=== PATIENT | male | born 1960 | race Caucasian/White ===

== ENCOUNTER 2016-04-03 09:43 | Emergency (ER) | payer SELFPAY ==
[2016-04-03 10:16] VITALS: TEMP 99; BMI 23.6
[2016-04-03 10:41] LABS: AUTOMATED BASOPHIL 1.1 % (0-2); AUTOMATED EOSINOPHIL 2.8 % (0-5); AUTOMATED LYMPH 33.9 % (17-44); AUTOMATED MONOCYTE 12.9 % (3-10); AUTOMATED NEUTROPHIL 49.3 % (45-76); MPV 7.8 fL (7.4-10.4)
[2016-04-03 10:57] LABS: BLOOD UREA NITROGEN 9 MG/DL (9-20); CALCIUM 9.1 MG/DL (8.4-10.2); CALCULATED OSMOLALITY 267 MOs/Kg (270-290); CHLORIDE 101 mEq/L (98-107); GLUCOSE 129 MG/DL (70-99); SODIUM LEVEL 138 mEq/L (137-146); TOTAL PROTEIN 7.2 G/DL (6.3-8.2)
[2016-04-03 11:02] LABS: RBC/URINE 0-2 (0-2); WBC/URINE 0-2 (0-2)
[2016-04-03 11:06] LABS: LEUKOCYTES/URINE NEG (NEGATIVE); NITRITE/URINE NEG (NEGATIVE); URINE OCCULT BLOOD NEG (NEG/TRACE)
[2016-04-03 12:01] VITALS: PULSE 76
--- NOTE | 2016-04-03 12:27 | EDPRACDOC ---
- General Information Chief Complaint: Back Pain Stated Complaint: RT SIDE PAIN Time Seen by Provider: 04/03/16 12:19 Information Source: Patient Mode Of Arrival: Car Home Medications: Home Medications Atenolol [Tenormin] 50 mg PO DAILY(DRAGAN) 10/14/15 Alprazolam [Xanax] 1 mg PO TID 12/15/15 Aspirin (OrangeEnteric Coated) [Ecotrin] 325 mg PO DAILYWM #100 tablet 12/15/15 Oxycodone HCl/Acetaminophen [Percocet 10-325 mg Tablet] 1 tab PO TID 12/15/15 Oxymorphone HCl [Opana] 15 mg PO TID 12/15/15 Diazepam [Valium] 5 mg PO TID PRN #10 tablet 03/05/16 Oxycodone HCl [Roxicodone] 5 mg PO Q4 PRN #10 tablet 03/05/16 Cyclobenzaprine HCl [Flexeril] 10 mg PO TID PRN #15 tablet 04/03/16 Oxycodone Immediate Release [Oxycodone Immediate Release (OxyIR)] 5 mg PO Q6H PRN #10 tab 04/03/16 Prednisone [Deltasone, Orasone] 20 mg PO DAILY #20 tab 04/03/16 Allergies/Adverse Reactions: Allergies Allergy/AdvReac Type Severity Reaction Status Date / Time codeine Allergy Rash-Genera Verified 03/05/16 15:21 lized hydrocodone Allergy Nausea/Vomi Verified 03/05/16 15:21 ting morphine Allergy Nausea/Vomi Verified 03/05/16 15:21 ting Penicillins Allergy rash Verified 03/05/16 15:21 tramadol Allergy Rash-Genera Verified 03/05/16 15:21 lized - History of Present Illness Onset: YESTERDAY HPI: PT c/o R lower back pain radiating to R thigh x 2 days. Denies abd pain, n/v, loss of control bowel or bladder, leg weakness or numbness, rash. Pt states he has not followed up with liver specialist yet. Pain Location: Reports: Right, Lumbar Pain Radiates To: Reports: Thigh, Buttock Pain Caused By: Reports: Spontaneous Circumstances: Reports: Unknown Relevant History: Reports: Chronic back pain Pain Severity: Reports: Moderate Pain Quality: Reports: Aching, Sharp, Stabbing Worsened By: Reports: Movement Associated Signs and Symptoms: Reports: None ED Past Medical History - History Reviewed Yes Nurses notes reviewed and agree except as marked - Patient Medical History Neurological History: Reports: Cerebrovascular Accident (AGE 29-), Seizures Cardiac History: Reports: Hypertension Musculoskeletal History: Reports: Arthritis Psychological History: Reports: Anxiety. Denies: Depression, Substance Use Disorder Surgical History: Reports: Other (Right forearm after trauma.) - Family Medical History Reports: Hypertension (mother, father, brothers, sisters), Diabetes (mother), Cancer (brother-lung CA, sister-unsure), Stroke (Both parents), Cardiac Disorders (mother) - Social Medical History Smoking Status: Heavy tobacco smoker (5 or more cigarettes/day or daily pipe/ cigar) Social History: Denies: Substance Use Disorder ETOH: None Substance Abuse: None EDM Review of Systems - Review of Systems Constitutional: No Symptoms Reported. negative: Fever, Chills, Weakness, Fatigue, Loss of Appetite Respiratory: No Symptoms Reported. negative: Cough, Brassy Cough, Barky Cough, Shortness of Breath, Wheezing, Hemoptysis Cardiovascular: No Symptoms Reported. negative: Chest Pain, Palpitations, Syncope, Edema, Orthopnea, PND, Skin Mottling, Cyanosis Gastrointestinal: No Symptoms Reported. negative: Pain, Constipation, Nausea, Vomiting, Diarrhea, Melena, Formula Intolerance Genitourinary: No Symptoms Reported. negative: Dysuria, Hematuria, Frequency, Discharge, Bleeding, Testicular Pain, Neurological: No Symptoms Reported. negative: Headache, Dizziness, Seizure, Numbness, Weakness, Speech Difficulty, Gait Difficulty Musculoskeletal: Back, Femur, Hip Integumentary: No Symptoms Reported. negative: Itching, Rash, Bruising, Wound Allergic/Immunologic: No Symptoms Reported. negative: Hives, Itching Hematologic: No Symptoms Reported. negative: Lymphadenopathy, Easy Bruising, Easy Bleeding Psychiatric: No Symptoms Reported. negative: Anxiety, Depression, Hallucinations, Insomnia, Suicidal - Physical Exam Constitutional: Alert Oriented to: Time, Person, Place Last recorded Vital Signs: Last Vital Signs Temp 99.0 F 04/03/16 10:09 Pulse 76 04/03/16 12:00 Resp 20 04/03/16 12:00 BP 205/99 H 04/03/16 12:00 Pulse Ox 97 04/03/16 12:00 Oxygen Pulse Oxygen Saturation 97 O2 Device Room Air Oxygen Flow Rate Fraction of Inspired Oxygen ( FIO2) - HEENT Head: Normal ( normocephalic) - Respiratory/Cardiovascular Respiratory: Normal - CTA (BBS clear to auscultation without adventitious sounds ) Cardiovascular: Normal (RRR without murmur, gallop or rub) - GI Auscultation: Normal (NABS) Palpation: Normal (Soft,No rebound or guarding, non distended) Tenderness: Non tender Chavez's Sign: Negative - Musculoskeletal Back: Normal (Non-Tender) Extremities: Normal (Normal tone, Pulses 2+ No cyanosis or edema, FROM) - Integumentary Skin: Normal, Warm, Dry Lymphatics: Normal (no adenopathy) - Neurologic Memory Impaired: Normal Motor Function: Normal (Normal tone, Pulses 2+ No cyanosis or edema, FROM) Mood Description: Normal Perception: Normal ED Back Exam - Neurologic Motor Deficit: None (strength 5/5, sensation nl) Reflexes: Normal (CN II-X11 intact) - Musculoskeletal Cervical: Normal Thoracic: Normal Lumbar: Normal Midline: Normal Paraspinous: Normal Straight Leg Raise: Positive (R) Pelvis: Normal - Differential Diagnosis DJD, Musculoskeletal pain, Strain, Urinary tract infection - Results 04/03/16 10:20 04/03/16 10:20 WBC 5.3 xk/uL (3.8-10.8) 04/03/16 10:20 RBC 4.78 xM/uL (4.70-6.10) 04/03/16 10:20 Hgb 16.0 g/dL (14.0-18.0) 04/03/16 10:20 Hct 45.3 % (42-52) 04/03/16 10:20 MCV 95 fL (80-94) H 04/03/16 10:20 MCH 33.5 pg (27-32) H 04/03/16 10:20 MCHC 35.4 g/dl (33-36) 04/03/16 10:20 RDW 14.2 % (11.5-14.5) 04/03/16 10:20 Plt Count 167 xk/uL (130-400) 04/03/16 10:20 MPV 7.8 fL (7.4-10.4) 04/03/16 10:20 Neut % (Auto) 49.3 % (45-76) 04/03/16 10:20 Lymph % (Auto) 33.9 % (17-44) 04/03/16 10:20 [place] % (Auto) 12.9 % (3-10) H 04/03/16 10:20 Eos % (Auto) 2.8 % (0-5) 04/03/16 10:20 Baso % (Auto) 1.1 % (0-2) 04/03/16 10:20 Absolute Neuts (auto) 2.60 xk/uL (1.7-8.2) 04/03/16 10:20 Absolute Lymphs (auto) 1.75 xk/uL (0.65-4.75) 04/03/16 10:20 Sodium 138 mEq/L (137-146) 04/03/16 10:20 Potassium 4.1 mEq/L (3.5-5.1) 04/03/16 10:20 Chloride 101 mEq/L (98-107) 04/03/16 10:20 Carbon Dioxide 30 mMOL/L (22-33) 04/03/16 10:20 Anion Gap 11 mEq/L (8-16) 04/03/16 10:20 BUN 9 MG/DL (9-20) 04/03/16 10:20 Creatinine 0.80 MG/DL (0.66-1.25) 04/03/16 10:20 Estimated GFR (MDRD) > 60 mL/min (>=60) 04/03/16 10:20 Glucose 129 MG/DL (70-99) H 04/03/16 10:20 Calculated Osmolality 267 MOs/Kg (270-290) L 04/03/16 10:20 Calcium 9.1 MG/DL (8.4-10.2) 04/03/16 10:20 Total Bilirubin 0.9 MG/DL (0.2-1.3) 04/03/16 10:20 AST 456 IU/L (17-59) H 04/03/16 10:20 ALT 481 IU/L (21-72) H 04/03/16 10:20 Alkaline Phosphatase 104 IU/L (38-126) 04/03/16 10:20 Total Protein 7.2 G/DL (6.3-8.2) 04/03/16 10:20 Albumin 4.1 G/DL (3.5-5.0) 04/03/16 10:20 Urine Color Yellow 04/03/16 10:24 Urine Clarity Clear 04/03/16 10:24 Urine pH 6.0 (5.0-8.0) 04/03/16 10:24 Ur Specific [place] 1.005 (1.003-1.035) 04/03/16 10:24 Urine Protein Neg (NEG/TRACE) 04/03/16 10:24 Urine Glucose (UA) Neg (NEGATIVE) 04/03/16 10:24 Urine Ketones Neg (NEGATIVE) 04/03/16 10:24 Urine Occult Blood Neg (NEG/TRACE) 04/03/16 10:24 Urine Nitrite Neg (NEGATIVE) 04/03/16 10:24 Urine Bilirubin Neg (NEGATIVE) 04/03/16 10:24 Urine Urobilinogen 0.2 MG/DL (0-1) 04/03/16 10:24 Ur Leukocyte Esterase Neg (NEGATIVE) 04/03/16 10:24 Urine RBC 0-2 (0-2) 04/03/16 10:24 Urine WBC 0-2 (0-2) 04/03/16 10:24 Urine Bacteria Few (NEG/FEW) 04/03/16 10:24 Lab Results 04/03/16 04/03/16 04/03/16 10:24 10:20 10:20 WBC 5.3 RBC 4.78 Hgb 16.0 Hct 45.3 MCV 95 H MCH 33.5 H MCHC 35.4 RDW 14.2 Plt Count 167 MPV 7.8 Neut % (Auto) 49.3 Lymph % (Auto) 33.9 [place] % (Auto) 12.9 H Eos % (Auto) 2.8 Baso % (Auto) 1.1 Absolute Neuts (auto) 2.60 Absolute Lymphs (auto) 1.75 Sodium 138 Potassium 4.1 Chloride 101 Carbon Dioxide 30 Anion Gap 11 BUN 9 Creatinine 0.80 Estimated GFR (MDRD) > 60 Glucose 129 H Calculated Osmolality 267 L Calcium 9.1 Total Bilirubin 0.9 AST 456 H ALT 481 H Alkaline Phosphatase 104 Total Protein 7.2 Albumin 4.1 Urine Color Yellow Urine Clarity Clear Urine pH 6.0 Ur Specific [place] 1.005 Urine Protein Neg Urine Glucose (UA) Neg Urine Ketones Neg Urine Occult Blood Neg Urine Nitrite Neg Urine Bilirubin Neg Urine Urobilinogen 0.2 Ur Leukocyte Esterase Neg Urine RBC 0-2 Urine WBC 0-2 Urine Bacteria Few - Additional Information Informed pt he must f/u with liver specialist to r/o cancer Decision Time to Discharge: 12:27 - Departure Disposition: Home Condition: Good Final Diagnosis: Lumbar radiculopathy, Sciatica of right side, Elevated liver enzymes Instructions: Sciatica (ED), Lumbar Radiculopathy (ED) Education/Counseling Given To: Patient Education/Counseling Given Regarding: Diagnosis, Treatment, Follow Up Referrals: None,No Provider [Primary Care Provider] - One Week Justin Osborn MD [Staff Physician] - One Week Tariq Patton MD [Staff Physician] - One Week Prescriptions: Cyclobenzaprine HCl [Flexeril] 10 mg PO TID PRN #15 tablet PRN Reason: Pain Oxycodone Immediate Release [Oxycodone Immediate Release (OxyIR)] 5 mg PO Q6H PRN #10 tab PRN Reason: Pain Prednisone [Deltasone, Orasone] 20 mg PO DAILY #20 tab Additional Instructions: Follow up with Personal MD for further evaluation of liver to rule out cancer.
[2016-04-03 12:41] VITALS: BP 212/92
== END 2016-04-03 12:34 | disposition home or self-care (01) ==
LOC: ED 09:43 → EDMC 12:34
DX: M54.16 Radiculopathy, lumbar region (principal); M54.41 Lumbago with sciatica, right side; R74.8 Abnormal levels of other serum enzymes
CPT/HCPCS: 36415; 80053; 81001; 85025; 99282

== ENCOUNTER 2016-04-22 16:07 | Emergency (ER) | payer SELFPAY ==
[2016-04-22 16:18] VITALS: BMI 23.3
[2016-04-22 16:37] LABS: AUTOMATED BASOPHIL 1.2 % (0-2); AUTOMATED EOSINOPHIL 0.6 % (0-5); AUTOMATED LYMPH 24.7 % (17-44); AUTOMATED MONOCYTE 7.6 % (3-10); AUTOMATED NEUTROPHIL 65.9 % (45-76); MPV 7.5 fL (7.4-10.4)
[2016-04-22 16:46] LABS: LEUKOCYTES/URINE NEG (NEGATIVE); NITRITE/URINE NEG (NEGATIVE); RBC/URINE 0-2 (0-2); URINE OCCULT BLOOD NEG (NEG/TRACE); WBC/URINE 0-2 (0-2)
[2016-04-22 16:49] LABS: BLOOD UREA NITROGEN 15 MG/DL (9-20); CALCIUM 8.9 MG/DL (8.4-10.2); CALCULATED OSMOLALITY 265 MOs/Kg (270-290); CHLORIDE 103 mEq/L (98-107); GLUCOSE 91 mg/dL (70-99); SODIUM LEVEL 137 mEq/L (137-146); TOTAL PROTEIN 7.4 G/DL (6.3-8.2)
--- NOTE | 2016-04-22 17:48 | EDPRACDOC ---
- General Information Chief Complaint: Abdominal Pain Stated Complaint: RT UPPER ABD PAIN WITH RT SIDED BACK PAIN Time Seen by Provider: 04/22/16 17:38 Information Source: Patient Mode Of Arrival: Car Home Medications: Home Medications Dicyclomine HCl [Bentyl] 20 mg PO Q6H PRN #30 tab 04/22/16 Allergies/Adverse Reactions: Allergies Allergy/AdvReac Type Severity Reaction Status Date / Time codeine Allergy Rash-Genera Verified 04/22/16 16:18 lized hydrocodone Allergy Nausea/Vomi Verified 04/22/16 16:18 ting morphine Allergy Nausea/Vomi Verified 04/22/16 16:18 ting Penicillins Allergy rash Verified 04/22/16 16:18 tramadol Allergy Rash-Genera Verified 04/22/16 16:18 lized - History of Present Illness Onset: 1 WEEK AGO HPI: PT COMPLAINS OF RUQ PAIN RADIATING TO RIGHT FLANK FOR SEVERAL MONTHS, WORSE OVER THE LAST WEEK, STATES HAD FEVER TO 101 LAST WEEK. NO N/V/D, NO URINARY SYMPTOMS, NO CP OR SOBR, PT STATES HE WAS TOLD IN THE PAST THAT HE HAD "SWOLLEN LYMPH NODES" AROUND HIS LIVER, HAS NEVER FOLLOWED UP. Pain Location: Reports: RUQ, Flank Pain Context: Reports: Spontaneous Pain Severity: Severe Pain Quality: Reports: Sharp, Stabbing Pain Radiation: Reports: Flank Adult Abdominal History: Reports: Similar Pain (dx) Modifying Factors: improves with: Food, Position, Movement Associated Signs & Symptoms: Reports: Nausea. Denies: Frequency, Hematuria, Vomiting, Hematemesis, Anorexia, Diarrhea, Melena, Dysuria, Fever, Urgency, Chills Oral Intake: Normal Urinary Output: Normal ED Past Medical History - History Reviewed Yes Nurses notes reviewed and agree except as marked - Patient Medical History Neurological History: Reports: Cerebrovascular Accident (AGE 29-), Seizures Cardiac History: Reports: Hypertension Musculoskeletal History: Reports: Arthritis Psychological History: Reports: Anxiety. Denies: Depression, Substance Use Disorder Surgical History: Reports: Other (Right forearm after trauma.) - Family Medical History Reports: Hypertension (mother, father, brothers, sisters), Diabetes (mother), Cancer (brother-lung [place], sister-unsure), Stroke (Both parents), Cardiac Disorders (mother) - Social Medical History Smoking Status: Heavy tobacco smoker (5 or more cigarettes/day or daily pipe/ cigar) Social History: Denies: Substance Use Disorder ETOH: None Substance Abuse: None EDM Review of Systems - Review of Systems Constitutional: negative: Chills, Fever Eyes: negative: Blurred Vision, Double Vision Ears: negative: Drainage Throat: negative: Pain Nose: negative: Congestion, Discharge Respiratory: negative: Cough, Shortness of Breath, Wheezing Cardiovascular: negative: Chest Pain, Palpitations Gastrointestinal: Nausea, Pain. negative: Diarrhea, Vomiting Genitourinary: negative: Dysuria, Frequency Neurological: negative: Dizziness, Headache, Numbness, Weakness Musculoskeletal: No Symptoms Reported Integumentary: No Symptoms Reported - Physical Exam Constitutional: Alert (Awake), No apparent distress Oriented to: Time, Person, Place Last recorded Vital Signs: Last Vital Signs Temp 98.5 F 04/22/16 16:07 Pulse 84 04/22/16 17:52 Resp 20 04/22/16 17:52 BP 179/94 04/22/16 17:52 Pulse Ox 96 04/22/16 17:52 Oxygen Pulse Oxygen Saturation 96 O2 Device Room Air Oxygen Flow Rate Fraction of Inspired Oxygen ( FIO2) - HEENT Head: Normal ( normocephalic) Eye Exam: Normal (PERRL, EOMI, Sclera white) Oropharynx: Normal (Pharynx:Moist without exudate,Gums-no swelling) Tympanic Membrane: Normal ENT EAC: Normal TMJ: Normal Nose: No Symptoms Reported (septum midline) Neck: Normal (FROM, trachea at midline) - Respiratory/Cardiovascular Respiratory: Normal - CTA (BBS clear to auscultation without adventitious sounds ) Cardiovascular: Normal (RRR without murmur, gallop or rub) - GI Auscultation: Normal (NABS) Palpation: Normal (Soft,No rebound or guarding, non distended) Tenderness: Diffuse (WORSE RUQ), Mild. negative: Guarding, Rebound, Rigidity Chavez's Sign: Negative - Musculoskeletal Back: Normal (Non-Tender) Extremities: Normal (Normal tone, Pulses 2+ No cyanosis or edema, FROM) - Integumentary Skin: Normal, Warm, Dry Lymphatics: Normal (no adenopathy) - Neurologic Memory Impaired: Normal Motor Function: Normal (Normal tone, Pulses 2+ No cyanosis or edema, FROM) Cranial Nerve: Normal (CN II-X11 intact sensation, strength 5/5) Cerebellar: Normal Mood Description: Normal Perception: Normal - Differential Diagnosis Bowel Obstruction, Cholelithiasis, Constipation, Diverticulitis, IBS, Pancreatitis, UTI, Ureterolithiasis - Results 04/22/16 16:24 04/22/16 16:24 WBC 8.7 xk/uL (3.8-10.8) 04/22/16 16:24 RBC 4.55 xM/uL (4.70-6.10) L 04/22/16 16:24 Hgb 15.1 g/dL (14.0-18.0) 04/22/16 16:24 Hct 42.8 % (42-52) 04/22/16 16:24 MCV 94 fL (80-94) 04/22/16 16:24 MCH 33.2 pg (27-32) H 04/22/16 16:24 MCHC 35.3 g/dl (33-36) 04/22/16 16:24 RDW 13.4 % (11.5-14.5) 04/22/16 16:24 Plt Count 244 xk/uL (130-400) 04/22/16 16:24 MPV 7.5 fL (7.4-10.4) 04/22/16 16:24 Neut % (Auto) 65.9 % (45-76) 04/22/16 16:24 Lymph % (Auto) 24.7 % (17-44) 04/22/16 16:24 [place] % (Auto) 7.6 % (3-10) 04/22/16 16:24 Eos % (Auto) 0.6 % (0-5) 04/22/16 16:24 Baso % (Auto) 1.2 % (0-2) 04/22/16 16:24 Absolute Neuts (auto) 5.66 xk/uL (1.7-8.2) 04/22/16 16:24 Absolute Lymphs (auto) 2.09 xk/uL (0.65-4.75) 04/22/16 16:24 Sodium 137 mEq/L (137-146) 04/22/16 16:24 Potassium 3.8 mEq/L (3.5-5.1) 04/22/16 16:24 Chloride 103 mEq/L (98-107) 04/22/16 16:24 Carbon Dioxide 26 mMOL/L (22-33) 04/22/16 16:24 Anion Gap 12 mEq/L (8-16) 04/22/16 16:24 BUN 15 MG/DL (9-20) 04/22/16 16:24 Creatinine 0.80 MG/DL (0.66-1.25) 04/22/16 16:24 Estimated GFR (MDRD) > 60 mL/min (>=60) 04/22/16 16:24 Glucose 91 mg/dL (70-99) 04/22/16 16:24 Calculated Osmolality 265 MOs/Kg (270-290) L 04/22/16 16:24 Calcium 8.9 MG/DL (8.4-10.2) 04/22/16 16:24 Total Bilirubin 0.9 MG/DL (0.2-1.3) 04/22/16 16:24 AST 47 IU/L (17-59) 04/22/16 16:24 ALT 109 IU/L (21-72) H 04/22/16 16:24 Alkaline Phosphatase 108 IU/L (38-126) 04/22/16 16:24 Ammonia < 9.0 umol/L (9.0-30.0) L 04/22/16 16:24 Total Protein 7.4 G/DL (6.3-8.2) 04/22/16 16:24 Albumin 4.1 G/DL (3.5-5.0) 04/22/16 16:24 Lipase 52 U/L (23-300) 04/22/16 16:24 Urine Color Yellow 04/22/16 16:20 Urine Clarity Clear 04/22/16 16:20 Urine pH 5.0 (5.0-8.0) 04/22/16 16:20 Ur Specific [place] 1.005 (1.003-1.035) 04/22/16 16:20 Urine Protein Neg (NEG/TRACE) 04/22/16 16:20 Urine Glucose (UA) Neg (NEGATIVE) 04/22/16 16:20 Urine Ketones Neg (NEGATIVE) 04/22/16 16:20 Urine Occult Blood Neg (NEG/TRACE) 04/22/16 16:20 Urine Nitrite Neg (NEGATIVE) 04/22/16 16:20 Urine Bilirubin Neg (NEGATIVE) 04/22/16 16:20 Urine Urobilinogen <2.0 MG/DL (0-1) 04/22/16 16:20 Ur Leukocyte Esterase Neg (NEGATIVE) 04/22/16 16:20 Urine RBC 0-2 (0-2) 04/22/16 16:20 Urine WBC 0-2 (0-2) 04/22/16 16:20 Ur Epithelial Cells Occ 04/22/16 16:20 Urine Bacteria Few (NEG/FEW) 04/22/16 16:20 Lab Results 04/22/16 04/22/16 04/22/16 16:24 16:24 16:24 WBC 8.7 RBC 4.55 L Hgb 15.1 Hct 42.8 MCV 94 MCH 33.2 H MCHC 35.3 RDW 13.4 Plt Count 244 MPV 7.5 Neut % (Auto) 65.9 Lymph % (Auto) 24.7 [place] % (Auto) 7.6 Eos % (Auto) 0.6 Baso % (Auto) 1.2 Absolute Neuts (auto) 5.66 Absolute Lymphs (auto) 2.09 Sodium 137 Potassium 3.8 Chloride 103 Carbon Dioxide 26 Anion Gap 12 BUN 15 Creatinine 0.80 Estimated GFR (MDRD) > 60 Glucose 91 Calculated Osmolality 265 L Calcium 8.9 Total Bilirubin 0.9 AST 47 ALT 109 H Alkaline Phosphatase 108 Ammonia < 9.0 L Total Protein 7.4 Albumin 4.1 Lipase 52 Urine Color Urine Clarity Urine pH Ur Specific [place] Urine Protein Urine Glucose (UA) Urine Ketones Urine Occult Blood Urine Nitrite Urine Bilirubin Urine Urobilinogen Ur Leukocyte Esterase Urine RBC Urine WBC Ur Epithelial Cells Urine Bacteria 04/22/16 16:20 WBC RBC Hgb Hct MCV MCH MCHC RDW Plt Count MPV Neut % (Auto) Lymph % (Auto) [place] % (Auto) Eos % (Auto) Baso % (Auto) Absolute Neuts (auto) Absolute Lymphs (auto) Sodium Potassium Chloride Carbon Dioxide Anion Gap BUN Creatinine Estimated GFR (MDRD) Glucose Calculated Osmolality Calcium Total Bilirubin AST ALT Alkaline Phosphatase Ammonia Total Protein Albumin Lipase Urine Color Yellow Urine Clarity Clear Urine pH 5.0 Ur Specific [place] 1.005 Urine Protein Neg Urine Glucose (UA) Neg Urine Ketones Neg Urine Occult Blood Neg Urine Nitrite Neg Urine Bilirubin Neg Urine Urobilinogen <2.0 Ur Leukocyte Esterase Neg Urine RBC 0-2 Urine WBC 0-2 Ur Epithelial Cells Occ Urine Bacteria Few - Diagnostic Imaging CT ABD/PELVIS Image interpreted by: Radiologist 04/22/16 19:18 CT ABDOMEN AND PELVIS WITH CONTRAST TECHNIQUE: Multidetector CT imaging of the abdomen and pelvis was performed using the standard protocol following bolus administration of intravenous contrast. CONTRAST: 100 cc Isovue 370 IV COMPARISON: CTA 03/05/2016 FINDINGS: Small nodule in the anterior right middle lobe measures 3-4 mm, stable. Lung bases otherwise clear. Heart is normal size. No effusions. Liver, gallbladder, spleen, pancreas, adrenals and kidneys are normal. No renal or ureteral stones. No hydronephrosis. Appendix is visualized and is normal. Urinary bladder wall appears mildly thickened. This is stable when compared to prior study and likely reflects some degree of bladder outlet obstruction. Central prostate calcifications present. Stomach, large and small bowel are unremarkable. No free fluid, free air or adenopathy. Aorta is normal caliber. No acute bony abnormality or focal bone lesion. IMPRESSION: No acute findings in the abdomen or pelvis. Decision Time to Discharge: 19:18 - Departure Disposition: Home Condition: Stable Final Diagnosis: Abdominal pain Instructions: Acute Abdominal Pain (ED) Education/Counseling Given To: Patient Education/Counseling Given Regarding: Diagnosis, Treatment, Prognosis, Follow Up Referrals: Norman Capps MD [Staff Physician] - One Week Prescriptions: New Dicyclomine HCl [Bentyl] 20 mg PO Q6H PRN #30 tab PRN Reason: Abdominal Pain Additional Instructions: RETURN TO THE ED FOR ANY WORSENING SYMPTOMS OR CONCERNS.
[2016-04-22] MEDS ORDERED: FENTANYL 100 MCG/2 ML VIAL IV ONE (17:51)
[2016-04-22] MEDS ORDERED: ONDANSETRON HCL 4 MG/2 ML VIAL IV ONE (17:51)
[2016-04-22] MEDS ORDERED: Pharmacy Review for Metformin - IV Contrast Given SCH (18:00)
--- NOTE | 2016-04-22 18:54 | DIRPT ---
CLINICAL DATA: Right upper quadrant pain, right flank pain. Fever. EXAM: CT ABDOMEN AND PELVIS WITH CONTRAST TECHNIQUE: Multidetector CT imaging of the abdomen and pelvis was performed using the standard protocol following bolus administration of intravenous contrast. CONTRAST: 100 cc Isovue 370 IV COMPARISON: CTA 03/05/2016 FINDINGS: Small nodule in the anterior right middle lobe measures 3-4 mm, stable. Lung bases otherwise clear. Heart is normal size. No effusions. Liver, gallbladder, spleen, pancreas, adrenals and kidneys are normal. No renal or ureteral stones. No hydronephrosis. Appendix is visualized and is normal. Urinary bladder wall appears mildly thickened. This is stable when compared to prior study and likely reflects some degree of bladder outlet obstruction. Central prostate calcifications present. Stomach, large and small bowel are unremarkable. No free fluid, free air or adenopathy. Aorta is normal caliber. No acute bony abnormality or focal bone lesion. IMPRESSION: No acute findings in the abdomen or pelvis. Electronically Signed By: Eliceo Barnes M.D. On: 04/22/2016 18:51
[2016-04-22 19:29] VITALS: BP 193/87; PULSE 78; TEMP 97.8
== END 2016-04-22 19:25 | disposition home or self-care (01) ==
LOC: ED 16:07 → EDMC 19:25
DX: R10.11 Right upper quadrant pain (principal); F17.200 Nicotine dependence, unspecified, uncomplicated
CPT/HCPCS: 36415; 74177; 80053; 81001; 82140; 83690; 85025; 96374; 96375; 99283; A9698; J2405; J3010